=== PATIENT | male | born 1960 | race Caucasian/White ===

== ENCOUNTER 2018-10-09 11:42 | Inpatient (IN) | payer OTHER ==
[2018-10-09] MEDS ORDERED: NITROGLYCERIN (SL) 0.4 MG TAB SL (12:00)
[2018-10-09] MEDS: NITROGLYCERIN 2% 1 GM OINT PKT TD (12:24)
[2018-10-09] MEDS: ASPIRIN 81 MG TAB PO (12:25)
[2018-10-09] MEDS: FUROSEMIDE 40 MG INJ IV (12:25)
[2018-10-09 12:26] LABS: ADD MAN DIFF? NO
[2018-10-09 12:31] LABS: WHITE BLOOD COUNT 8.8 10^3/ul (4.8-10.8)
[2018-10-09 12:31] LABS: BASOPHIL # 0.1 10^3/ul (0.0-0.1); BASOPHILS % 0.8 % (0.0-2.0); EOSINOPHILS # 0.1 10^3/ul (0.0-0.5); HEMATOCRIT 40.9 % (42.0-52.0); HEMOGLOBIN 13.4 g/dl (14.0-18.0); LYMPHOCYTES # 1.6 10^3/ul (0.8-2.9); LYMPHOCYTES % 18.2 % (15.0-51.0); MEAN CORPUSCULAR HEMOGLOBIN 33.9 pg (29.0-33.0); MEAN CORPUSCULAR HGB CONC 32.8 g/dl (32.0-37.0); MEAN CORPUSCULAR VOLUME 103.5 fl (82.0-101.0); MEAN PLATELET VOLUME 11.8 fl (7.4-10.4); MONOCYTES % 11.5 % (0.0-11.0); NEUTROPHILS % 68.2 % (39.0-77.0); PLATELET COUNT 171 10^3/UL (140-415); RED BLOOD COUNT 3.95 10^6/ul (4.70-6.10); RED CELL DISTRIBUTION WIDTH 13.5 % (11.5-14.5)
[2018-10-09 12:55] LABS: ANION GAP 15 (5-13); BLOOD UREA NITROGEN 34 mg/dl (7-20); CALCIUM 8.6 mg/dl (8.4-10.2); CARBON DIOXIDE 27 mmol/L (21-31); CHLORIDE 95 mmol/L (97-110); CREATININE 1.32 mg/dl (0.61-1.24); Estimated GFR 56 mL/min (>60); GLUCOSE 124 mg/dl (70-220); POTASSIUM 3.5 mmol/L (3.5-5.1); SODIUM 137 mmol/L (135-144)
[2018-10-09 12:56] LABS: INR 1.27; PROTIME 16.1 Sec (11.9-14.9); PT RATIO 1.3
[2018-10-09 12:57] LABS: PARTIAL THROMBOPLASTIN TIME 34.2 Sec (23.0-35.0)
[2018-10-09] MEDS ORDERED: ONDANSETRON 4 MG INJ IV ×2 (13:30→14:00)
[2018-10-09] MEDS ORDERED: ACETAMINOPHEN 325 MG TAB PO ×2 (13:30→14:00)
[2018-10-09] MEDS ORDERED: HYDROCODONE/APAP (5/325) TAB PO (14:00)
[2018-10-09] MEDS ORDERED: NACL 0.9% 3 ML SYG IV (14:00)
[2018-10-09 14:21] LABS: B-TYPE NATRIURETIC PEPTIDE 18200 PG/ML (0-125)
[2018-10-09 18:11] LABS: CREATINE KINASE 90 IU/L (23-200)
[2018-10-09 18:24] LABS: CK INDEX 2.1; CK-MB 1.91 ng/ml (0.0-2.4); TROPONIN-I 0.036 ng/ml (0.000-0.120)
[2018-10-09] MEDS: RIVAROXABAN 20 MG TABLET PO (19:53)
[2018-10-09] MEDS: ATORVASTATIN 40 MG TAB PO (21:08)
[2018-10-09 23:59] LABS: CREATINE KINASE 77 IU/L (23-200)
[2018-10-10 00:12] LABS: CK INDEX 2.2; CK-MB 1.69 ng/ml (0.0-2.4); TROPONIN-I 0.035 ng/ml (0.000-0.120)
[2018-10-10] MEDS: FUROSEMIDE 40 MG INJ IV ×2 (05:27→17:12)
[2018-10-10] MEDS ORDERED: FUROSEMIDE 20 MG INJ IV (06:00)
[2018-10-10 06:06] LABS: ADD MAN DIFF? NO
[2018-10-10 06:09] LABS: WHITE BLOOD COUNT 8.9 10^3/ul (4.8-10.8)
[2018-10-10 06:09] LABS: BASOPHIL # 0.1 10^3/ul (0.0-0.1); BASOPHILS % 0.6 % (0.0-2.0); EOSINOPHILS # 0.2 10^3/ul (0.0-0.5); EOSINOPHILS % 1.9 % (0.0-7.0); HEMATOCRIT 38.1 % (42.0-52.0); HEMOGLOBIN 12.5 g/dl (14.0-18.0); LYMPHOCYTES # 1.6 10^3/ul (0.8-2.9); MEAN CORPUSCULAR HGB CONC 32.8 g/dl (32.0-37.0); MEAN CORPUSCULAR VOLUME 103.5 fl (82.0-101.0); MEAN PLATELET VOLUME 12.1 fl (7.4-10.4); MONOCYTE # 0.8 10^3/ul (0.3-0.9); MONOCYTES % 9.4 % (0.0-11.0); NEUTROPHIL # 6.2 10^3/ul (1.6-7.5); NEUTROPHILS % 69.8 % (39.0-77.0); PLATELET COUNT 169 10^3/UL (140-415); RED BLOOD COUNT 3.68 10^6/ul (4.70-6.10); RED CELL DISTRIBUTION WIDTH 13.7 % (11.5-14.5)
[2018-10-10 06:32] LABS: URIC ACID 12.4 mg/dl (3.1-7.9)
[2018-10-10 06:50] LABS: ALANINE AMINOTRANSFERASE 30 IU/L (13-69); ALBUMIN 3.4 g/dl (3.3-4.9); ALBUMIN/GLOBULIN RATIO 1.36; ALKALINE PHOSPHATASE 159 IU/L (42-121); ANION GAP 14 (5-13); ASPARTATE AMINO TRANSFERASE 43 IU/L (15-46); BILIRUBIN,INDIRECT 0.6 mg/dl (0-1.1); BILIRUBIN,TOTAL 0.6 mg/dl (0.2-1.3); BLOOD UREA NITROGEN 37 mg/dl (7-20); CALCIUM 8.5 mg/dl (8.4-10.2); CARBON DIOXIDE 31 mmol/L (21-31); CHLORIDE 95 mmol/L (97-110); CHOL/HDL RATIO 3.9 RATIO; CHOLESTEROL 106 mg/dl (100-200); CREATININE 1.33 mg/dl (0.61-1.24); Estimated GFR 55 mL/min (>60); GLUCOSE 90 mg/dl (70-220); HDL CHOLESTEROL 27 mg/dl (30-78); LDL CHOLESTEROL,CALCULATED 56 mg/dl; MAGNESIUM 2.1 mg/dl (1.7-2.5); POTASSIUM 3.3 mmol/L (3.5-5.1); SODIUM 140 mmol/L (135-144); TOTAL PROTEIN 5.9 g/dl (6.1-8.1); TRIGLYCERIDES 113 mg/dl (0-149)
[2018-10-10 07:49] LABS: HEMOGLOBIN A1C 5.5 % (0-5.9)
[2018-10-10] MEDS: MULTIVITAMINS THERAPEUTIC TAB PO (08:10)
[2018-10-10] MEDS: ASPIRIN 81 MG TAB PO (08:10)
[2018-10-10] MEDS: ALLOPURINOL 100 MG TAB PO (08:10)
[2018-10-10] MEDS: INFLUENZA VIRUS VACCINE 0.5 ML (DISPENSING) IM* (08:38)
[2018-10-10] MEDS ORDERED: FUROSEMIDE 20 MG TAB PO (09:00)
[2018-10-10] MEDS ORDERED: LISINOPRIL 5 MG TAB PO (09:00)
[2018-10-10] MEDS: POTASSIUM CHLORIDE (SR) 20 MEQ TAB PO (09:12)
[2018-10-10] MEDS: DIGOXIN 0.125 MG TAB PO (12:57)
[2018-10-10] MEDS: RIVAROXABAN 20 MG TABLET PO (17:11)
[2018-10-10] MEDS: ATORVASTATIN 40 MG TAB PO (21:18)
[2018-10-11] MEDS: FUROSEMIDE 40 MG INJ IV (05:25)
[2018-10-11 06:13] LABS: ADD MAN DIFF? NO
[2018-10-11 06:18] LABS: WHITE BLOOD COUNT 7.5 10^3/ul (4.8-10.8)
[2018-10-11 06:19] LABS: BASOPHIL # 0.1 10^3/ul (0.0-0.1); BASOPHILS % 0.7 % (0.0-2.0); EOSINOPHILS # 0.2 10^3/ul (0.0-0.5); EOSINOPHILS % 2.5 % (0.0-7.0); HEMATOCRIT 38.4 % (42.0-52.0); HEMOGLOBIN 12.6 g/dl (14.0-18.0); LYMPHOCYTES # 1.6 10^3/ul (0.8-2.9); LYMPHOCYTES % 21.7 % (15.0-51.0); MEAN CORPUSCULAR HEMOGLOBIN 34.1 pg (29.0-33.0); MEAN CORPUSCULAR HGB CONC 32.8 g/dl (32.0-37.0); MEAN CORPUSCULAR VOLUME 103.8 fl (82.0-101.0); MEAN PLATELET VOLUME 12.2 fl (7.4-10.4); MONOCYTE # 0.7 10^3/ul (0.3-0.9); MONOCYTES % 9.1 % (0.0-11.0); NEUTROPHIL # 4.9 10^3/ul (1.6-7.5); NEUTROPHILS % 65.5 % (39.0-77.0); PLATELET COUNT 159 10^3/UL (140-415); RED CELL DISTRIBUTION WIDTH 13.5 % (11.5-14.5)
[2018-10-11 06:56] LABS: ANION GAP 12 (5-13); BLOOD UREA NITROGEN 38 mg/dl (7-20); CALCIUM 8.6 mg/dl (8.4-10.2); CARBON DIOXIDE 32 mmol/L (21-31); CHLORIDE 98 mmol/L (97-110); CREATININE 1.24 mg/dl (0.61-1.24); Estimated GFR 60 mL/min (>60); GLUCOSE 99 mg/dl (70-220); MAGNESIUM 2.1 mg/dl (1.7-2.5); PHOSPHORUS 3.7 mg/dl (2.5-4.9); POTASSIUM 3.6 mmol/L (3.5-5.1); SODIUM 142 mmol/L (135-144)
[2018-10-11 07:50] LABS: ADD UMIC NO; UR ASCORBIC ACID NEGATIVE (NEGATIVE); UR BILIRUBIN (Dip) NEGATIVE (NEGATIVE); UR BLOOD (Dip) NEGATIVE (NEGATIVE); UR CLARITY CLEAR (CLEAR); UR COLOR YELLOW (YELLOW); UR GLUCOSE (Dip) NEGATIVE (NEGATIVE); UR KETONES (Dip) NEGATIVE (NEGATIVE); UR LEUKOCYTE ESTERASE (Dip) NEGATIVE Leu/ul (NEGATIVE); UR NITRITE (Dip) NEGATIVE (NEGATIVE); UR TOTAL PROTEIN (Dip) NEGATIVE (NEGATIVE); UR UROBILINOGEN (Dip) 1+ mg/dL (NEGATIVE)
[2018-10-11] MEDS: MULTIVITAMINS THERAPEUTIC TAB PO (08:15)
[2018-10-11] MEDS: ASPIRIN 81 MG TAB PO (08:15)
[2018-10-11] MEDS: ALLOPURINOL 300 MG TAB PO (08:16)
[2018-10-11 08:26] LABS: CREATININE,URINE RANDOM 50.21 mg/dl (20-370)
[2018-10-11 08:27] LABS: SODIUM,URINE RANDOM 33 mmol/L (30-90)
[2018-10-11] MEDS ORDERED: ALBUTEROL/IPRATROPIUM (NEB) 3 ML AMP HHN (09:30)
[2018-10-11] MEDS: BUDESONIDE (NEB) 0.5MG/2ML AMP HHN ×3 (10:00→20:01)
[2018-10-11] MEDS: DIGOXIN 0.125 MG TAB PO (12:33)
[2018-10-11] MEDS: ALBUTEROL/IPRATROPIUM (NEB) 3 ML AMP HHN ×2 (13:50→20:01)
[2018-10-11] MEDS: RIVAROXABAN 20 MG TABLET PO (17:27)
[2018-10-11] MEDS: BUMETANIDE 1 MG TAB PO (18:33)
[2018-10-11] MEDS: ATORVASTATIN 40 MG TAB PO (20:47)
[2018-10-12] MEDS: BUMETANIDE 1 MG TAB PO ×2 (05:11→17:04)
[2018-10-12 05:49] LABS: ANION GAP 12 (5-13); BLOOD UREA NITROGEN 35 mg/dl (7-20); CALCIUM 8.8 mg/dl (8.4-10.2); CARBON DIOXIDE 32 mmol/L (21-31); CHLORIDE 97 mmol/L (97-110); CREATININE 1.09 mg/dl (0.61-1.24); Estimated GFR > 60 mL/min (>60); GLUCOSE 54 mg/dl (70-220); MAGNESIUM 2.2 mg/dl (1.7-2.5); PHOSPHORUS 3.6 mg/dl (2.5-4.9); POTASSIUM 3.4 mmol/L (3.5-5.1); SODIUM 141 mmol/L (135-144)
[2018-10-12] MEDS: ALLOPURINOL 300 MG TAB PO (08:17)
[2018-10-12] MEDS: MULTIVITAMINS THERAPEUTIC TAB PO (08:18)
[2018-10-12] MEDS: ASPIRIN 81 MG TAB PO (08:18)
[2018-10-12] MEDS: ALBUTEROL/IPRATROPIUM (NEB) 3 ML AMP HHN ×3 (09:10→20:40)
[2018-10-12] MEDS: BUDESONIDE (NEB) 0.5MG/2ML AMP HHN ×2 (09:10→20:40)
[2018-10-12] MEDS: POTASSIUM CHLORIDE (SR) 20 MEQ TAB PO (09:16)
[2018-10-12] MEDS: POTASSIUM CHLORIDE 20 MEQ POWDER FOR ORAL SOLN PO (09:44)
[2018-10-12] MEDS: DIGOXIN 0.125 MG TAB PO (13:48)
[2018-10-12] MEDS: RIVAROXABAN 20 MG TABLET PO (17:04)
[2018-10-12] MEDS: ATORVASTATIN 40 MG TAB PO (21:04)
[2018-10-13] MEDS: BUMETANIDE 1 MG TAB PO ×2 (06:14→17:20)
[2018-10-13 06:42] LABS: ANION GAP 11 (5-13); BLOOD UREA NITROGEN 37 mg/dl (7-20); CALCIUM 8.8 mg/dl (8.4-10.2); CARBON DIOXIDE 30 mmol/L (21-31); CHLORIDE 100 mmol/L (97-110); CREATININE 1.02 mg/dl (0.61-1.24); Estimated GFR > 60 mL/min (>60); GLUCOSE 88 mg/dl (70-220); PHOSPHORUS 3.2 mg/dl (2.5-4.9); POTASSIUM 3.6 mmol/L (3.5-5.1); SODIUM 141 mmol/L (135-144)
[2018-10-13] MEDS: ALBUTEROL/IPRATROPIUM (NEB) 3 ML AMP HHN ×3 (08:27→20:40)
[2018-10-13] MEDS: BUDESONIDE (NEB) 0.5MG/2ML AMP HHN ×2 (08:37→20:40)
[2018-10-13] MEDS: MULTIVITAMINS THERAPEUTIC TAB PO (08:54)
[2018-10-13] MEDS: ASPIRIN 81 MG TAB PO (08:54)
[2018-10-13] MEDS: ALLOPURINOL 300 MG TAB PO (08:54)
[2018-10-13] MEDS: POTASSIUM CHLORIDE (SR) 20 MEQ TAB PO (09:18)
[2018-10-13] MEDS: DIGOXIN 0.125 MG TAB PO (12:17)
[2018-10-13] MEDS: RIVAROXABAN 20 MG TABLET PO (17:20)
[2018-10-13] MEDS: ATORVASTATIN 40 MG TAB PO (20:51)
[2018-10-14] MEDS: BUMETANIDE 1 MG TAB PO ×2 (05:06→17:20)
[2018-10-14 07:00] LABS: ALBUMIN 3.3 g/dl (3.3-4.9); ANION GAP 12 (5-13); BLOOD UREA NITROGEN 39 mg/dl (7-20); CALCIUM 8.8 mg/dl (8.4-10.2); CARBON DIOXIDE 32 mmol/L (21-31); CHLORIDE 98 mmol/L (97-110); CREATININE 1.02 mg/dl (0.61-1.24); GLUCOSE 122 mg/dl (70-220); MAGNESIUM 2.1 mg/dl (1.7-2.5); PHOSPHORUS 3.9 mg/dl (2.5-4.9); POTASSIUM 3.9 mmol/L (3.5-5.1); SODIUM 142 mmol/L (135-144)
[2018-10-14] MEDS: MULTIVITAMINS THERAPEUTIC TAB PO (08:28)
[2018-10-14] MEDS: ASPIRIN 81 MG TAB PO (08:29)
[2018-10-14] MEDS: ALLOPURINOL 300 MG TAB PO (08:29)
[2018-10-14] MEDS: ALBUTEROL/IPRATROPIUM (NEB) 3 ML AMP HHN ×3 (08:44→21:21)
[2018-10-14] MEDS: BUDESONIDE (NEB) 0.5MG/2ML AMP HHN ×2 (09:14→21:21)
[2018-10-14] MEDS: DIGOXIN 0.125 MG TAB PO (13:05)
[2018-10-14] MEDS: RIVAROXABAN 20 MG TABLET PO (17:20)
[2018-10-14] MEDS: ATORVASTATIN 40 MG TAB PO (20:57)
[2018-10-15 06:32] LABS: ANION GAP 11 (5-13); BLOOD UREA NITROGEN 39 mg/dl (7-20); CALCIUM 9.3 mg/dl (8.4-10.2); CARBON DIOXIDE 32 mmol/L (21-31); CHLORIDE 99 mmol/L (97-110); CREATININE 1.07 mg/dl (0.61-1.24); Estimated GFR > 60 mL/min (>60); GLUCOSE 79 mg/dl (70-220); PHOSPHORUS 4.5 mg/dl (2.5-4.9); POTASSIUM 4.2 mmol/L (3.5-5.1); SODIUM 142 mmol/L (135-144)
[2018-10-15] MEDS: BUMETANIDE 1 MG TAB PO ×2 (06:51→17:11)
[2018-10-15] MEDS: ALLOPURINOL 300 MG TAB PO (08:18)
[2018-10-15] MEDS: ASPIRIN 81 MG TAB PO (08:18)
[2018-10-15] MEDS: MULTIVITAMINS THERAPEUTIC TAB PO (08:18)
[2018-10-15] MEDS: BUDESONIDE (NEB) 0.5MG/2ML AMP HHN ×2 (08:33→20:36)
[2018-10-15] MEDS: ALBUTEROL/IPRATROPIUM (NEB) 3 ML AMP HHN ×3 (08:33→20:36)
[2018-10-15] MEDS: DIGOXIN 0.125 MG TAB PO (13:35)
[2018-10-15] MEDS: RIVAROXABAN 20 MG TABLET PO (17:11)
[2018-10-15] MEDS: ATORVASTATIN 40 MG TAB PO (21:18)
[2018-10-16] MEDS: BUMETANIDE 1 MG TAB PO (06:47)
[2018-10-16] MEDS: ASPIRIN 81 MG TAB PO (08:11)
[2018-10-16] MEDS: MULTIVITAMINS THERAPEUTIC TAB PO (08:11)
[2018-10-16] MEDS: ALLOPURINOL 300 MG TAB PO (08:11)
[2018-10-16] MEDS: BUDESONIDE (NEB) 0.5MG/2ML AMP HHN (08:49)
[2018-10-16] MEDS: ALBUTEROL/IPRATROPIUM (NEB) 3 ML AMP HHN ×2 (08:49→13:30)
[2018-10-16] MEDS: DIGOXIN 0.125 MG TAB PO (14:52)
== END 2018-10-16 16:24 | disposition home or self-care (01) | DRG 291 ==
LOC: E/R 11:42 → 6WM 13:17
DX: I13.0 Hypertensive heart and chronic kidney disease with heart failure and stage 1 through stage 4 chronic kidney disease, or unspecified chronic kidney disease (principal); I50.23 Acute on chronic systolic (congestive) heart failure; J96.01 Acute respiratory failure with hypoxia; N17.9 Acute kidney failure, unspecified; I42.9 Cardiomyopathy, unspecified; I48.2 Chronic atrial fibrillation; Z79.01 Long term (current) use of anticoagulants; N18.9 Chronic kidney disease, unspecified; E87.6 Hypokalemia; E78.5 Hyperlipidemia, unspecified
CPT/HCPCS: 36415; 71045; 80048; 80053; 80061; 80069; 81003; 82550; 82553; 83036; 83735; 83880; 84100; 84155; 84300; 84484; 84560; 85025; 85610; 85730; 90686; 93005; 93306; 93970; 94640; 94664; 96374; 97116; 97161; 97530; 99285-25; G0378

== ENCOUNTER 2019-01-26 10:48 | Inpatient (IN) | payer OTHER ==
[2019-01-26] MEDS: FUROSEMIDE 40 MG INJ IV ×2 (11:33→17:48)
[2019-01-26] MEDS: ASPIRIN 325 MG TAB PO (11:33)
[2019-01-26 11:51] LABS: ADD MAN DIFF? NO
[2019-01-26 12:07] LABS: BASOPHIL # 0.1 10^3/ul (0.0-0.1); BASOPHILS % 0.9 % (0.0-2.0); EOSINOPHILS # 0.1 10^3/ul (0.0-0.5); EOSINOPHILS % 1.5 % (0.0-7.0); HEMATOCRIT 43.5 % (42.0-52.0); HEMOGLOBIN 14.6 g/dl (14.0-18.0); LYMPHOCYTES # 1.3 10^3/ul (0.8-2.9); LYMPHOCYTES % 19.3 % (15.0-51.0); MEAN CORPUSCULAR HEMOGLOBIN 34.4 pg (29.0-33.0); MEAN CORPUSCULAR HGB CONC 33.6 g/dl (32.0-37.0); MEAN CORPUSCULAR VOLUME 102.6 fl (82.0-101.0); MEAN PLATELET VOLUME 12.5 fl (7.4-10.4); MONOCYTE # 0.8 10^3/ul (0.3-0.9); MONOCYTES % 12.4 % (0.0-11.0); NEUTROPHIL # 4.4 10^3/ul (1.6-7.5); NEUTROPHILS % 65.6 % (39.0-77.0); PLATELET COUNT 148 10^3/UL (140-415); RED BLOOD COUNT 4.24 10^6/ul (4.70-6.10); RED CELL DISTRIBUTION WIDTH 15.2 % (11.5-14.5)
[2019-01-26 12:07] LABS: WHITE BLOOD COUNT 6.6 10^3/ul (4.8-10.8)
[2019-01-26 12:28] LABS: ANION GAP 12 (5-13); BLOOD UREA NITROGEN 37 mg/dl (7-20); CALCIUM 9.1 mg/dl (8.4-10.2); CARBON DIOXIDE 29 mmol/L (21-31); CHLORIDE 96 mmol/L (97-110); CREATININE 1.48 mg/dl (0.61-1.24); Estimated GFR 49 mL/min (>60); GLUCOSE 88 mg/dl (70-220); SODIUM 137 mmol/L (135-144)
[2019-01-26 12:34] LABS: POTASSIUM 2.9 mmol/L (3.5-5.1)
[2019-01-26 12:38] LABS: B-TYPE NATRIURETIC PEPTIDE 15200 PG/ML (0-125)
[2019-01-26] MEDS: POTASSIUM CHLORIDE (SR) 20 MEQ TAB PO (13:14)
[2019-01-26] MEDS ORDERED: ACETAMINOPHEN 325 MG TAB PO ×2 (13:30→14:00)
[2019-01-26] MEDS ORDERED: ONDANSETRON 4 MG INJ IV ×2 (13:30→14:00)
[2019-01-26] MEDS ORDERED: morphine 2 MG INJ IV (14:00)
[2019-01-26] MEDS ORDERED: NACL 0.9% 3 ML SYG IV (14:00)
[2019-01-26 16:59] LABS: CREATINE KINASE 127 IU/L (23-200)
[2019-01-26 17:11] LABS: CK INDEX 2.7; TROPONIN-I 0.032 ng/ml (0.000-0.120)
[2019-01-26 17:13] LABS: CK-MB 3.48 ng/ml (0.0-2.4)
[2019-01-26] MEDS: PANTOPRAZOLE (EC) 40 MG TAB PO (17:48)
[2019-01-26] MEDS ORDERED: RIVAROXABAN 20 MG TABLET PO (18:00)
[2019-01-26] MEDS: ALLOPURINOL 300 MG TAB PO (18:06)
[2019-01-26] MEDS: DIGOXIN 0.125 MG TAB PO (18:06)
[2019-01-26] MEDS: POTASSIUM CHLORIDE 20 MEQ POWDER FOR ORAL SOLN PO (18:06)
[2019-01-26] MEDS: ATORVASTATIN 40 MG TAB PO (20:53)
[2019-01-26] MEDS: SUCRALFATE (100 MG/ML) 10ML CUP PO (20:53)
[2019-01-26] MEDS: SPIRONOLACTONE 25 MG TAB PO (20:53)
[2019-01-26] MEDS: GUAIFENESIN/DM 5ML CUP PO (20:54)
[2019-01-26] MEDS: LORAZEPAM 2 MG INJ IV (20:57)
[2019-01-26] MEDS ORDERED: POTASSIUM CHLORIDE (SR) 20 MEQ TAB PO (21:00)
[2019-01-26 22:48] LABS: ANION GAP 17 (5-13); BLOOD UREA NITROGEN 40 mg/dl (7-20); CALCIUM 9.5 mg/dl (8.4-10.2); CALCIUM 9.6 mg/dl (8.4-10.2); CARBON DIOXIDE 27 mmol/L (21-31); CHLORIDE 93 mmol/L (97-110); CREATININE 1.57 mg/dl (0.61-1.24); CREATININE 1.58 mg/dl (0.61-1.24); Estimated GFR 45 mL/min (>60); GLUCOSE 101 mg/dl (70-220); GLUCOSE 104 mg/dl (70-220); POTASSIUM 3.8 mmol/L (3.5-5.1); SODIUM 137 mmol/L (135-144)
[2019-01-26] MEDS: HYDROCODONE/APAP (5/325) TAB PO (23:03)
[2019-01-27 05:41] LABS: ADD MAN DIFF? NO
[2019-01-27 05:50] LABS: WHITE BLOOD COUNT 6.5 10^3/ul (4.8-10.8)
[2019-01-27 05:50] LABS: BASOPHIL # 0.1 10^3/ul (0.0-0.1); BASOPHILS % 0.8 % (0.0-2.0); EOSINOPHILS # 0.1 10^3/ul (0.0-0.5); HEMATOCRIT 42.1 % (42.0-52.0); HEMOGLOBIN 13.9 g/dl (14.0-18.0); LYMPHOCYTES # 1.7 10^3/ul (0.8-2.9); LYMPHOCYTES % 25.9 % (15.0-51.0); MEAN CORPUSCULAR HEMOGLOBIN 34.2 pg (29.0-33.0); MEAN CORPUSCULAR VOLUME 103.4 fl (82.0-101.0); MONOCYTE # 0.8 10^3/ul (0.3-0.9); MONOCYTES % 12.7 % (0.0-11.0); NEUTROPHIL # 3.8 10^3/ul (1.6-7.5); NEUTROPHILS % 58.3 % (39.0-77.0); PLATELET COUNT 142 10^3/UL (140-415); RED BLOOD COUNT 4.07 10^6/ul (4.70-6.10); RED CELL DISTRIBUTION WIDTH 15.2 % (11.5-14.5)
[2019-01-27 06:15] LABS: FREE T4 (FREE THYROXINE) 1.84 ng/dl (0.64-1.79)
[2019-01-27 06:25] LABS: ALANINE AMINOTRANSFERASE 15 IU/L (13-69); ALBUMIN 3.7 g/dl (3.3-4.9); ALBUMIN/GLOBULIN RATIO 1.23; ALKALINE PHOSPHATASE 174 IU/L (42-121); ANION GAP 15 (5-13); ASPARTATE AMINO TRANSFERASE 46 IU/L (15-46); BILIRUBIN,INDIRECT 1.4 mg/dl (0-1.1); BILIRUBIN,TOTAL 1.4 mg/dl (0.2-1.3); BLOOD UREA NITROGEN 41 mg/dl (7-20); CALCIUM 9.3 mg/dl (8.4-10.2); CARBON DIOXIDE 26 mmol/L (21-31); CHLORIDE 95 mmol/L (97-110); CHOL/HDL RATIO 3.1 RATIO; CHOLESTEROL 117 mg/dl (100-200); CREATININE 1.56 mg/dl (0.61-1.24); Estimated GFR 46 mL/min (>60); GLUCOSE 79 mg/dl (70-220); HDL CHOLESTEROL 37 mg/dl (30-78); LDL CHOLESTEROL,CALCULATED 64 mg/dl; MAGNESIUM 2.4 mg/dl (1.7-2.5); SODIUM 136 mmol/L (135-144); TOTAL PROTEIN 6.7 g/dl (6.1-8.1); TRIGLYCERIDES 82 mg/dl (0-149)
[2019-01-27 06:28] LABS: B-TYPE NATRIURETIC PEPTIDE 14400 PG/ML (0-125)
[2019-01-27 06:47] LABS: PHOSPHORUS 4.3 mg/dl (2.5-4.9)
[2019-01-27] MEDS: PANTOPRAZOLE (EC) 40 MG TAB PO (06:57)
[2019-01-27] MEDS: FUROSEMIDE 40 MG INJ IV (06:57)
[2019-01-27 07:19] LABS: ADD UMIC NO; UR ASCORBIC ACID 20 mg/dL (NEGATIVE); UR BILIRUBIN (Dip) NEGATIVE (NEGATIVE); UR BLOOD (Dip) NEGATIVE (NEGATIVE); UR CLARITY CLEAR (CLEAR); UR COLOR YELLOW (YELLOW); UR GLUCOSE (Dip) NEGATIVE (NEGATIVE); UR KETONES (Dip) NEGATIVE (NEGATIVE); UR LEUKOCYTE ESTERASE (Dip) NEGATIVE Leu/ul (NEGATIVE); UR NITRITE (Dip) NEGATIVE (NEGATIVE); UR SPECIFIC GRAVITY (Dip) 1.013 (1.003-1.030); UR TOTAL PROTEIN (Dip) NEGATIVE (NEGATIVE); UR UROBILINOGEN (Dip) 1+ mg/dL (NEGATIVE)
[2019-01-27 08:02] LABS: DIGOXIN < 0.4 ng/ml (1.0-2.0)
[2019-01-27] MEDS: SUCRALFATE (100 MG/ML) 10ML CUP PO ×4 (08:46→20:50)
[2019-01-27] MEDS: ALLOPURINOL 300 MG TAB PO (08:46)
[2019-01-27] MEDS: SPIRONOLACTONE 25 MG TAB PO (08:47)
[2019-01-27] MEDS: LOSARTAN 25 MG TAB PO (08:47)
[2019-01-27 08:49] LABS: HEMOGLOBIN A1C 5.7 % (0-5.9)
[2019-01-27 08:59] LABS: SODIUM,URINE RANDOM < 13 mmol/L (30-90)
[2019-01-27] MEDS ORDERED: ASPIRIN 81 MG TAB PO (09:00)
[2019-01-27] MEDS: METOLAZONE 5 MG TAB PO (11:02)
[2019-01-27 12:19] LABS: TROPONIN-I 0.027 ng/ml (0.000-0.120)
[2019-01-27] MEDS: DIGOXIN 0.125 MG TAB PO (13:24)
[2019-01-27] MEDS: RIVAROXABAN 20 MG TABLET PO (18:07)
[2019-01-27] MEDS: BUMETANIDE 1 MG TAB PO (18:07)
[2019-01-27] MEDS: ATORVASTATIN 40 MG TAB PO (20:50)
[2019-01-27] MEDS: HYDROCODONE/APAP (5/325) TAB PO (20:53)
[2019-01-28] MEDS: HYDROCODONE/APAP (5/325) TAB PO ×2 (04:23→21:25)
[2019-01-28] MEDS: BUMETANIDE 1 MG TAB PO ×2 (05:06→17:06)
[2019-01-28] MEDS: PANTOPRAZOLE (EC) 40 MG TAB PO (05:06)
[2019-01-28 06:04] LABS: ADD MAN DIFF? NO
[2019-01-28 06:08] LABS: BASOPHILS % 0.7 % (0.0-2.0); EOSINOPHILS # 0.1 10^3/ul (0.0-0.5); EOSINOPHILS % 2.3 % (0.0-7.0); HEMATOCRIT 42.1 % (42.0-52.0); HEMOGLOBIN 13.8 g/dl (14.0-18.0); LYMPHOCYTES # 1.1 10^3/ul (0.8-2.9); LYMPHOCYTES % 18.6 % (15.0-51.0); MEAN CORPUSCULAR HEMOGLOBIN 34.2 pg (29.0-33.0); MEAN CORPUSCULAR HGB CONC 32.8 g/dl (32.0-37.0); MEAN CORPUSCULAR VOLUME 104.5 fl (82.0-101.0); MEAN PLATELET VOLUME 12.5 fl (7.4-10.4); MONOCYTE # 0.5 10^3/ul (0.3-0.9); MONOCYTES % 8.1 % (0.0-11.0); NEUTROPHIL # 4.3 10^3/ul (1.6-7.5); PLATELET COUNT 125 10^3/UL (140-415); RED BLOOD COUNT 4.03 10^6/ul (4.70-6.10); RED CELL DISTRIBUTION WIDTH 15.2 % (11.5-14.5)
[2019-01-28 06:08] LABS: WHITE BLOOD COUNT 6.1 10^3/ul (4.8-10.8)
[2019-01-28 06:44] LABS: PHOSPHORUS 4.2 mg/dl (2.5-4.9)
[2019-01-28 06:44] LABS: MAGNESIUM 2.1 mg/dl (1.7-2.5)
[2019-01-28 06:46] LABS: ALANINE AMINOTRANSFERASE 22 IU/L (13-69); ALBUMIN 3.4 g/dl (3.3-4.9); ALBUMIN/GLOBULIN RATIO 1.21; ALKALINE PHOSPHATASE 156 IU/L (42-121); ANION GAP 12 (5-13); ASPARTATE AMINO TRANSFERASE 40 IU/L (15-46); BILIRUBIN,INDIRECT 0.9 mg/dl (0-1.1); BILIRUBIN,TOTAL 0.9 mg/dl (0.2-1.3); BLOOD UREA NITROGEN 47 mg/dl (7-20); CALCIUM 8.9 mg/dl (8.4-10.2); CARBON DIOXIDE 31 mmol/L (21-31); CHLORIDE 93 mmol/L (97-110); CREATININE 1.61 mg/dl (0.61-1.24); Estimated GFR 44 mL/min (>60); GLUCOSE 83 mg/dl (70-220); POTASSIUM 3.2 mmol/L (3.5-5.1); SODIUM 136 mmol/L (135-144); TOTAL PROTEIN 6.2 g/dl (6.1-8.1)
[2019-01-28 06:48] LABS: B-TYPE NATRIURETIC PEPTIDE 8680 PG/ML (0-125)
[2019-01-28] MEDS: SUCRALFATE (100 MG/ML) 10ML CUP PO ×4 (08:44→21:25)
[2019-01-28] MEDS: GUAIFENESIN/DM 5ML CUP PO ×2 (08:45→21:25)
[2019-01-28] MEDS: POTASSIUM CHLORIDE (SR) 20 MEQ TAB PO ×2 (08:46→12:38)
[2019-01-28] MEDS: ALLOPURINOL 300 MG TAB PO (08:48)
[2019-01-28] MEDS: SPIRONOLACTONE 25 MG TAB PO (08:48)
[2019-01-28] MEDS: LOSARTAN 25 MG TAB PO (08:49)
[2019-01-28] MEDS: DIGOXIN 0.125 MG TAB PO (12:39)
[2019-01-28 15:57] LABS: CREATININE, RANDOM URINE 90 mg/dL (20-320); MICROALBUMIN/CREATININE RATIO 133 (<30)
[2019-01-28] MEDS: RIVAROXABAN 20 MG TABLET PO (17:06)
[2019-01-28] MEDS: ATORVASTATIN 40 MG TAB PO (22:02)
[2019-01-29] MEDS: BUMETANIDE 1 MG TAB PO (05:39)
[2019-01-29] MEDS: PANTOPRAZOLE (EC) 40 MG TAB PO (05:39)
[2019-01-29 06:19] LABS: ADD MAN DIFF? NO
[2019-01-29 06:32] LABS: WHITE BLOOD COUNT 6.2 10^3/ul (4.8-10.8)
[2019-01-29 06:32] LABS: BASOPHILS % 0.7 % (0.0-2.0); EOSINOPHILS # 0.1 10^3/ul (0.0-0.5); EOSINOPHILS % 2.1 % (0.0-7.0); HEMATOCRIT 42.5 % (42.0-52.0); HEMOGLOBIN 14.1 g/dl (14.0-18.0); LYMPHOCYTES # 1.2 10^3/ul (0.8-2.9); LYMPHOCYTES % 19.8 % (15.0-51.0); MEAN CORPUSCULAR HEMOGLOBIN 34.1 pg (29.0-33.0); MEAN CORPUSCULAR HGB CONC 33.2 g/dl (32.0-37.0); MEAN CORPUSCULAR VOLUME 102.9 fl (82.0-101.0); MEAN PLATELET VOLUME 12.5 fl (7.4-10.4); MONOCYTE # 0.7 10^3/ul (0.3-0.9); MONOCYTES % 10.9 % (0.0-11.0); NEUTROPHIL # 4.1 10^3/ul (1.6-7.5); PLATELET COUNT 140 10^3/UL (140-415); RED BLOOD COUNT 4.13 10^6/ul (4.70-6.10)
[2019-01-29 06:59] LABS: ANION GAP 11 (5-13); BLOOD UREA NITROGEN 47 mg/dl (7-20); CALCIUM 9.1 mg/dl (8.4-10.2); CARBON DIOXIDE 32 mmol/L (21-31); CHLORIDE 94 mmol/L (97-110); CREATININE 1.28 mg/dl (0.61-1.24); Estimated GFR 58 mL/min (>60); GLUCOSE 74 mg/dl (70-220); MAGNESIUM 1.8 mg/dl (1.7-2.5); PHOSPHORUS 3.8 mg/dl (2.5-4.9); POTASSIUM 3.3 mmol/L (3.5-5.1); SODIUM 137 mmol/L (135-144)
[2019-01-29] MEDS: POTASSIUM CHLORIDE (SR) 20 MEQ TAB PO ×2 (08:49→13:56)
[2019-01-29] MEDS: SUCRALFATE (100 MG/ML) 10ML CUP PO ×4 (08:49→20:30)
[2019-01-29] MEDS: ALLOPURINOL 300 MG TAB PO (08:50)
[2019-01-29] MEDS: SPIRONOLACTONE 25 MG TAB PO (08:50)
[2019-01-29] MEDS: LOSARTAN 25 MG TAB PO (08:51)
[2019-01-29] MEDS: METOPROLOL (XL) 25 MG TAB PO (08:52)
[2019-01-29] MEDS ORDERED: POTASSIUM CHLORIDE (SR) 20 MEQ TAB PO (09:19)
[2019-01-29] MEDS: DIGOXIN 0.125 MG TAB PO (16:28)
[2019-01-29] MEDS: RIVAROXABAN 20 MG TABLET PO (18:56)
[2019-01-29] MEDS: HYDROCODONE/APAP (5/325) TAB PO (20:30)
[2019-01-29] MEDS: ATORVASTATIN 40 MG TAB PO (20:30)
[2019-01-30] MEDS: PANTOPRAZOLE (EC) 40 MG TAB PO (06:08)
[2019-01-30 06:12] LABS: ADD MAN DIFF? NO
[2019-01-30 06:18] LABS: BASOPHILS % 0.6 % (0.0-2.0); EOSINOPHILS # 0.2 10^3/ul (0.0-0.5); EOSINOPHILS % 2.4 % (0.0-7.0); HEMATOCRIT 43.2 % (42.0-52.0); HEMOGLOBIN 14.1 g/dl (14.0-18.0); LYMPHOCYTES # 1.4 10^3/ul (0.8-2.9); LYMPHOCYTES % 20.4 % (15.0-51.0); MEAN CORPUSCULAR HGB CONC 32.6 g/dl (32.0-37.0); MEAN CORPUSCULAR VOLUME 104.1 fl (82.0-101.0); MEAN PLATELET VOLUME 12.7 fl (7.4-10.4); MONOCYTE # 0.9 10^3/ul (0.3-0.9); MONOCYTES % 13.1 % (0.0-11.0); NEUTROPHIL # 4.3 10^3/ul (1.6-7.5); NEUTROPHILS % 63.4 % (39.0-77.0); PLATELET COUNT 141 10^3/UL (140-415); RED BLOOD COUNT 4.15 10^6/ul (4.70-6.10); RED CELL DISTRIBUTION WIDTH 15.1 % (11.5-14.5)
[2019-01-30 06:18] LABS: WHITE BLOOD COUNT 6.7 10^3/ul (4.8-10.8)
[2019-01-30 06:53] LABS: ANION GAP 11 (5-13); BLOOD UREA NITROGEN 49 mg/dl (7-20); CALCIUM 9.1 mg/dl (8.4-10.2); CARBON DIOXIDE 33 mmol/L (21-31); CHLORIDE 92 mmol/L (97-110); CREATININE 1.15 mg/dl (0.61-1.24); Estimated GFR > 60 mL/min (>60); GLUCOSE 53 mg/dl (70-220); MAGNESIUM 1.9 mg/dl (1.7-2.5); PHOSPHORUS 3.5 mg/dl (2.5-4.9); POTASSIUM 3.8 mmol/L (3.5-5.1); SODIUM 136 mmol/L (135-144)
[2019-01-30] MEDS: SUCRALFATE (100 MG/ML) 10ML CUP PO ×2 (09:51→13:00)
[2019-01-30] MEDS: BUMETANIDE 1 MG TAB PO (09:51)
[2019-01-30] MEDS: METOPROLOL (XL) 25 MG TAB PO (09:52)
[2019-01-30] MEDS: ALLOPURINOL 300 MG TAB PO (09:52)
[2019-01-30] MEDS: SPIRONOLACTONE 25 MG TAB PO (09:52)
[2019-01-30] MEDS: LOSARTAN 25 MG TAB PO (09:52)
[2019-01-30] MEDS: DIGOXIN 0.125 MG TAB PO (13:00)
== END 2019-01-30 14:50 | disposition home or self-care (01) | DRG 291 ==
LOC: E/R 10:48 → 2NE 01-29 12:15 → 6WM 13:10
DX: I13.0 Hypertensive heart and chronic kidney disease with heart failure and stage 1 through stage 4 chronic kidney disease, or unspecified chronic kidney disease (principal); I50.43 Acute on chronic combined systolic (congestive) and diastolic (congestive) heart failure; N17.9 Acute kidney failure, unspecified; I42.9 Cardiomyopathy, unspecified; I48.91 Unspecified atrial fibrillation; E78.5 Hyperlipidemia, unspecified; M10.9 Gout, unspecified; R60.9 Edema, unspecified; K21.9 Gastro-esophageal reflux disease without esophagitis; N18.9 Chronic kidney disease, unspecified; E87.6 Hypokalemia; I25.10 Atherosclerotic heart disease of native coronary artery without angina pectoris; Z91.14 Patient's other noncompliance with medication regimen; Z79.02 Long term (current) use of antithrombotics/antiplatelets; I42.8 Other cardiomyopathies
CPT/HCPCS: 36415; 71045; 80048; 80053; 80061; 80069; 80162; 81003; 82043; 82550; 82553; 83036; 83735; 83880; 84100; 84155; 84300; 84439; 84443; 84484; 85025; 87400; 93005; 93306; 93922; 93970; 96374; 97162; 99285-25

== ENCOUNTER 2019-02-02 18:30 | Emergency (ER) | payer OTHER ==
[2019-02-02 21:48] LABS: ADD MAN DIFF? NO
[2019-02-02 22:07] LABS: BASOPHIL # 0.1 10^3/ul (0.0-0.1); BASOPHILS % 1.2 % (0.0-2.0); EOSINOPHILS # 0.1 10^3/ul (0.0-0.5); EOSINOPHILS % 0.9 % (0.0-7.0); HEMATOCRIT 43.7 % (42.0-52.0); HEMOGLOBIN 14.5 g/dl (14.0-18.0); LYMPHOCYTES # 1.6 10^3/ul (0.8-2.9); LYMPHOCYTES % 22.7 % (15.0-51.0); MEAN CORPUSCULAR HEMOGLOBIN 33.7 pg (29.0-33.0); MEAN CORPUSCULAR HGB CONC 33.2 g/dl (32.0-37.0); MEAN CORPUSCULAR VOLUME 101.6 fl (82.0-101.0); MEAN PLATELET VOLUME 12.3 fl (7.4-10.4); MONOCYTES % 14.8 % (0.0-11.0); NEUTROPHIL # 4.1 10^3/ul (1.6-7.5); NEUTROPHILS % 60.1 % (39.0-77.0); PLATELET COUNT 140 10^3/UL (140-415); RED CELL DISTRIBUTION WIDTH 14.9 % (11.5-14.5)
[2019-02-02 22:07] LABS: WHITE BLOOD COUNT 6.8 10^3/ul (4.8-10.8)
[2019-02-02 22:34] LABS: ALANINE AMINOTRANSFERASE 18 IU/L (13-69); ALBUMIN 3.9 g/dl (3.3-4.9); ALBUMIN/GLOBULIN RATIO 1.21; ALKALINE PHOSPHATASE 190 IU/L (42-121); ANION GAP 12 (5-13); ASPARTATE AMINO TRANSFERASE 49 IU/L (15-46); BILIRUBIN,INDIRECT 1.6 mg/dl (0-1.1); BILIRUBIN,TOTAL 1.6 mg/dl (0.2-1.3); BLOOD UREA NITROGEN 34 mg/dl (7-20); CALCIUM 9.3 mg/dl (8.4-10.2); CARBON DIOXIDE 27 mmol/L (21-31); CHLORIDE 98 mmol/L (97-110); CREATININE 1.04 mg/dl (0.61-1.24); Estimated GFR > 60 mL/min (>60); GLUCOSE 133 mg/dl (70-220); POTASSIUM 4.6 mmol/L (3.5-5.1); SODIUM 137 mmol/L (135-144); TOTAL PROTEIN 7.1 g/dl (6.1-8.1)
[2019-02-02 22:44] LABS: TROPONIN-I 0.039 ng/ml (0.000-0.120)
[2019-02-02 22:52] LABS: B-TYPE NATRIURETIC PEPTIDE 15100 PG/ML (0-125)
[2019-02-03] MEDS: FUROSEMIDE 40 MG INJ IV (00:07)
== END 2019-02-03 01:39 | disposition home or self-care (01) ==
LOC: E/R 02-03 01:39
DX: I11.0 Hypertensive heart disease with heart failure (principal); I50.9 Heart failure, unspecified; Z79.01 Long term (current) use of anticoagulants
CPT/HCPCS: 36415; 71045; 80053; 83880; 84484; 85025; 93005; 96374; 99285-25

== ENCOUNTER 2019-06-30 16:56 | Emergency (ER) | payer OTHER ==
[2019-06-30 17:31] LABS: ADD MAN DIFF? NO
[2019-06-30] MEDS: TRANEXAMIC ACID 1GM/100ML(PMX) 100 ML IV (17:31)
[2019-06-30 17:36] LABS: BASOPHIL # 0.1 10^3/ul (0.0-0.1); BASOPHILS % 1.1 % (0.0-2.0); EOSINOPHILS # 0.1 10^3/ul (0.0-0.5); HEMATOCRIT 40.7 % (42.0-52.0); HEMOGLOBIN 13.4 g/dl (14.0-18.0); LYMPHOCYTES # 1.5 10^3/ul (0.8-2.9); LYMPHOCYTES % 21.9 % (15.0-51.0); MEAN CORPUSCULAR HGB CONC 32.9 g/dl (32.0-37.0); MEAN CORPUSCULAR VOLUME 106.3 fl (82.0-101.0); MEAN PLATELET VOLUME 11.3 fl (7.4-10.4); MONOCYTE # 0.9 10^3/ul (0.3-0.9); MONOCYTES % 13.2 % (0.0-11.0); NEUTROPHIL # 4.1 10^3/ul (1.6-7.5); NEUTROPHILS % 61.6 % (39.0-77.0); PLATELET COUNT 154 10^3/UL (140-415); RED BLOOD COUNT 3.83 10^6/ul (4.70-6.10); RED CELL DISTRIBUTION WIDTH 14.7 % (11.5-14.5)
[2019-06-30 17:36] LABS: WHITE BLOOD COUNT 6.7 10^3/ul (4.8-10.8)
[2019-06-30 17:54] LABS: ALANINE AMINOTRANSFERASE 26 IU/L (13-69); ALKALINE PHOSPHATASE 187 IU/L (42-121); ANION GAP 8 (5-13); ASPARTATE AMINO TRANSFERASE 32 IU/L (15-46); BILIRUBIN,TOTAL 1.2 mg/dl (0.2-1.3); BLOOD UREA NITROGEN 27 mg/dl (7-20); CALCIUM 9.7 mg/dl (8.4-10.2); CARBON DIOXIDE 30 mmol/L (21-31); CHLORIDE 101 mmol/L (97-110); CREATININE 1.12 mg/dl (0.61-1.24); Estimated GFR > 60 mL/min (>60); GLUCOSE 86 mg/dl (70-220); POTASSIUM 4.1 mmol/L (3.5-5.1); SODIUM 139 mmol/L (135-144)
[2019-06-30 17:55] LABS: ALBUMIN 4.1 g/dl (3.3-4.9); ALBUMIN/GLOBULIN RATIO 1.28; BILIRUBIN,INDIRECT 1.2 mg/dl (0-1.1); TOTAL PROTEIN 7.3 g/dl (6.1-8.1)
[2019-06-30 17:57] LABS: PROTIME 15.3 Sec (11.9-14.9); PT RATIO 1.2
[2019-06-30 17:58] LABS: PARTIAL THROMBOPLASTIN TIME 33.9 Sec (23.0-35.0)
[2019-06-30 18:06] LABS: TROPONIN-I 0.017 ng/ml (0.000-0.120)
[2019-06-30] MEDS: ONDANSETRON 4 MG INJ IV (18:11)
[2019-06-30] MEDS: DESMOPRESSIN IVPB (18:11)
[2019-06-30] MEDS: SOD CHLORIDE 0.9% IVPB (18:11)
[2019-06-30] MEDS: morphine 4 MG/ML VIAL IV (19:25)
== END 2019-06-30 20:02 | disposition home or self-care (01) ==
LOC: E/R 16:56
DX: K91.840 Postprocedural hemorrhage of a digestive system organ or structure following a digestive system procedure (principal); I11.0 Hypertensive heart disease with heart failure; I50.9 Heart failure, unspecified; Z79.02 Long term (current) use of antithrombotics/antiplatelets
CPT/HCPCS: 36415; 80053; 84484; 85025; 85610; 85730; 86850; 86900; 86901; 93005; 96365; 96375; 99284-25